=== PATIENT | male | born 1960 | race Caucasian/White ===

== ENCOUNTER → 2017-12-03 | Outpatient (CLI) | payer OTHER ==
[~2017-12-03] MED LIST: ASCO500T20 PO; CHOL100061 PO; CIPR500T4 PO; CPR500T PO; CRAN450C PO; IBP800T PO; LISI10TA PO; METR500T PO; NAPR-243 PO; OMG1KC PO; OXYC-471 PO; TRAM-21 PO
--- NOTE | 2017-12-03 10:48 | Diagnostic Imaging Report ---
Ultrasound of the left breast limited. Indication: Retroareolar mass. The diagnostic mammogram performed earlier today failed to show any sign of malignancy or of an acute abnormality. The previous left breast ultrasound exam on 09/22/2012 did note a 2.1 cm hypoechoic lesion in the retroareolar region. This was felt to represent a small abscess. On this study there is no evidence for the suspected abscess. There is no discrete solid or cystic mass within the left breast. The patient did relate that the pain and swelling in the breast is intermittent. Impression: 1. There is no evidence of malignancy or for a recurrent abscess. Clinical followup is recommended. 2. These results were discussed with Dr. Dee. ACR BI-RADS Category 1: Negative. Result letter will be mailed to the patient. Note: At least 10% of breast cancer is not imaged by mammography. Dictated by: Dictated on workstation # [id number]
--- NOTE | 2017-12-04 22:31 | Diagnostic Imaging Report ---
EXAMINATION: Unilateral diagnostic left mammogram with 3D tomosynthesis. INDICATION: Left breast pain and fullness. There are no prior studies available for comparison. Craniocaudal and MLO views of the left breast and a comparison MLO view of the right breast were obtained. The current study was also evaluated with computer detection system (CAD). FINDINGS: There is only a very small amount of fibroglandular tissue in each retroareolar region. There is no sign of gynecomastia and there is no primary or secondary sign of malignancy noted. There is no abnormality to account for the patient's left breast pain either. IMPRESSION: There is no evidence for malignancy, gynecomastia, or a cause for the patient's left breast pain. Ultrasound is pending for further study. ACR BI-RADS Category 0: Incomplete. (Needs additional imaging evaluation). Result letter will be mailed to the patient. Note: At least 10% of breast cancer is not imaged by mammography. Dictated by: Dictated on workstation # [id number]
== END ==
LOC: RAD 08:06
PROVIDERS: ATTEND Surgery
DX: Z13.21 Encounter for screening for nutritional disorder (principal); N63.42 Unspecified lump in left breast, subareolar
CPT/HCPCS: 76642

== ENCOUNTER → 2017-12-03 | Outpatient (CLI) | payer OTHER ==
--- NOTE | 2017-12-03 16:25 | Diagnostic Imaging Report ---
PROCEDURE: US Abdomen, limited. TECHNIQUE: Multiple real-time grayscale images were obtained over the abdomen in various projections. INDICATION: Right lower quadrant pain. FINDINGS: Reportedly, there is clinical concern regarding a hernia into the inguinal canal. On this exam, there does seem to be a small amount of mesenteric fat extending into the canal. This finding was also present on the previous CT abdomen/pelvis exam of 12/19/2014. There is no evidence for incarceration or obstruction of the bowel in this area. IMPRESSION: There is a small fat-containing inguinal hernia, but there is no incarceration or obstruction of the bowel in this area. Dictated by: Dictated on workstation # [id number]
== END ==
LOC: RAD 09:25
PROVIDERS: ATTEND Nurse Practitioner Community Health
DX: K40.90 Unilateral inguinal hernia, without obstruction or gangrene, not specified as recurrent (principal)
CPT/HCPCS: 76705

== ENCOUNTER 2017-12-15 05:44 | Outpatient (CLI) | payer OTHER ==
[~2017-12-15] VITALS: Ht 175.3 cm; Wt 77.1 kg
[2017-12-15] MEDS ORDERED: C,E,1CAP PO (12:31)
[2017-12-15] MEDS ORDERED: LISI10TA2 PO (12:31)
[2017-12-15] MEDS ORDERED: OMG1KC PO (12:31)
[2017-12-15] MEDS ORDERED: ASCO500T7 PO (12:31)
[2017-12-15] MEDS ORDERED: CRAN450C PO (12:31)
== END 2017-12-15 12:32 | disposition home or self-care (01) ==
LOC: PREOP 05:44
PROVIDERS: ATTEND Surgery
DX: Z01.818 Encounter for other preprocedural examination (principal)

== ENCOUNTER 2017-12-17 08:21 | Day surgery (SDC) | payer OTHER ==
[~2017-12-17] VITALS: Ht 175.3 cm; Wt 77.1 kg
[~2017-12-17 08:21] MED LIST changes: +ASCO500T7 PO; +C,E,1CAP PO; +LISI10TA2 PO
[2017-12-17] MEDS ORDERED: BUPIVACAINE 0.5% 30 ML (SENSORCAINE) VIAL ONE (08:25)
[2017-12-17] MEDS ORDERED: LIDOCAINE 1% INJ 20 ML 20 ML VIAL ONE (08:26)
--- OUTSIDE RECORDS SUMMARY | 2017-12-17 08:26 | XMS REPORT ---
Author Author PAVEL POND Organization [facility] Address [address] [place] [address] Care Team Providers Care Steward [employer]etr[employer] Name Role Phone PAVEL POND Unavailable PROBLEMS Unknown Problems ALLERGIES Substance Reaction Event Type Date Status Bactrim Unknown Drug Allergy Nov, Active sulfa drugs Unknown Non Drug Allergy Nov, Active penicillin Unknown Non Drug Allergy Nov, Active ENCOUNTERS Encounter Location Date Diagnosis [facility] [id number] [place] [address]20- 0846 Dec, [facility] [id number] [place] [address] 30867- 6368 Nov, Unilateral recurrent inguinal hernia without obstruction or gangrene K40.91 ; Dysuria R30.0 ; Lower abdominal pain R10.30 and Epididymitis N45.1 [facility] [id number] [place] [address] 46821- 9582 Nov, [facility] [id number] [place] [address] 57978- 8472 Nov, Abdominal pain, right lower quadrant R10.31 and Left breast abscess N61.1 [facility] [place] [facility] [id number] [place] [address] [id number] Jun, Encounter for dental examination Z01.20 [facility] [place] [facility] [id number] [place] [address] [id number] Apr, Dental examination Z01.20 [facility] [id number] [place] [address] 18818- 3992 Feb, [facility] [id number] [place] [address] 70858- 9777 Dec, Bilateral flank pain R10.9 [facility] [address] [facility] [id number] [address] Oct, Fatigue 780.79 and Acute sinusitis, unspecified 461.9 [facility] [address] [address] Oct, Fatigue 780.79 [facility] [id number] [place] [address] 14 Jun, 2014 [facility] [id number] [address] Jun, [facility] [id number] [place] [address], [place] [address] May, [facility] [id number] [address] 9583 May, [facility] [address] [address] 1008 May, [facility] [address], [place] [address] 8113 Dec, [facility] [address], [place] [address] 2461 Dec, [facility] [address], [place] [address] Sep, [facility] [address], [place] [address] Sep, [facility] [address] [id number] [address] Sep, [facility] [address]65100[place] [address] Sep, [facility] [address] [id number] [address] 359[address] Sep, [facility] [address] [id number], [place] [address] 59[address] Aug, [facility] [place] [facility] [address] [id number] [place] [address] 4923 Aug, [facility] [place] [facility] [address] [id number] [place] [address]- 3134 Aug, [facility] [place] [facility] [address] [id number] [place] [address]- 2546 Aug, [facility] [place] [facility] [address] [id number] [place] [address]- 8694 July, [facility] [place] [facility] [address] [id number] [place] [address]- 5836 July, [facility] [place] [facility] [address] [id number] [place] [address]- 9943 July, [facility] [place] [facility] [address] [id number] [place] [address]- 1328 May, [facility] [place] [facility] [address] [id number] [place] [address]- 2351 May, [facility] [place] [facility] [address] [id number] [place] [address]- 0349 Feb, [facility] [place] [facility] [address] [id number] [place] [address]- 8285 Feb, [facility] [place] [facility] [address] [id number] [place] [address] Feb, [facility] [place] [facility] [address] [id number] [place] [address]- 5479 Feb, [facility] [place] [facility] [address] [id number] [place] [address]- 8824 Feb, [facility] [place] [facility] [address] [id number] [place] [address]- 3776 Feb, [facility] [place] [facility] [address] [id number] [place] [address]- 5772 Feb, [facility] [place] [facility] [address] [id number] [place] [address]- 0225 Feb, [facility] [place] [facility] [address] [id number] [place] [address]- 3122 Feb, [facility] [place] [facility] [address] [id number] [place] [address]- 9165 Feb, [facility] [place] [facility] [address] [id number] [place] [address]- 0714 Feb, [facility] [place] [facility] [address] [id number] [place] [address]- 5369 Feb, [facility] [place] [facility] [address] [id number] [place] [address]- 6190 Feb, [facility] [place] [facility] [address] [id number] [place] [address]- 8587 Jan, [facility] [place] [facility] [address] [id number] [place] [address]- 8616 Jan, [facility] [place] [facility] [address] [id number] [place] [address]- 7495 Dec, [facility] [place] [facility] [address] [id number] [place] [address]- 1909 Dec, [facility] [place] [facility] [address] [id number] [place] [address]- 8023 Oct, [facility] [place] [facility] [address] [id number] [address]- 7240 Oct, [facility] [place] [facility] [address] [id number] [address]- 4399 Oct, [facility] [place] [facility] [address] [id number] [place] [address]- 1357 Sep, [facility] [place] [facility] [address] [id number], [place] [address]- 1670 Sep, [facility] [place] [facility] [address] [id number] [place] [address]- 5806 Jun, [facility] [place] [facility] [address] [id number], [place] [address]- 7687 Mar, [facility] [address] [id number] [place] [address]- 6181 Jan, [facility] [address] [id number], [place] [address]- 8159 Jan, [facility] [address] [id number], [place] [address]- 4456 Jan, [facility] [address] [id number][place] [address]- 9156 Jan, [facility] [address] [id number] [place] [address]- 4613 Jan, [facility] [address] [id number] [place] [address]- 8797 Jan, [facility] [address] [id number], [place] [address]- 8802 Dec, [facility] [address] [id number] [address]- 5957 Dec, [facility] [address] [id number], [place] [address]- 4547 Nov, [facility] [address] [id number] [id number] Jun, [facility] [address] [id number], [place] [address]- 8387 Apr, [facility] [address] [id number], [place] [address]- 1516 Apr, [facility] [address] [id number], [place] [address]- 3815 Apr, [facility] [place] [facility] [address] [id number], [place] [address]- 6386 Apr, [facility] [address] [id number], [place] [address]- 3992 Mar, [facility] [address] [facility] [id number] [place] [address]- 8273 Mar, [facility] [address] [facility] [id number][place] [id number] Mar, [facility] [address] [facility] [id number] [place] [address]- 8750 Feb, [facility] [address] [facility] [id number]- 7348 Jan, IMMUNIZATIONS No Known Immunizations SOCIAL HISTORY Never Assessed REASON FOR VISIT pain, PT had some test done yesterday and felt better but today is suffering through pain -Darin LEMUS PLAN OF CARE VITAL SIGNS Height 69 in 2017-12-04 Weight 172.9 lbs 2017-12-04 Temperature 97.9 degrees Fahrenheit 2017-12-04 Heart Rate 63 bpm 2017-12-04 Respiratory Rate 20 2017-12-04 Oximetry 94 % 2017-12-04 BMI 25.53 kg/m2 2017-12-04 Blood pressure systolic 128 mmHg 2017-12-04 Blood pressure diastolic 72 mmHg 2017-12-04 MEDICATIONS Medication Instructions Dosage Frequency Start Date End Date Duration Status Doxycycline Hyclate 100 mg Orally every 12 hrs 1 capsule 12h Nov, Dec, 10 day(s) Active Cranberry 425 MG Active Fish Oil 1000 MG Orally Once a day 1 capsule 24h Active Pantoprazole Sodium 20 mg Orally Once a day 1 tablet 24h Nov, 30 day(s) Active Lisinopril 10 MG 1 tablet 24h Sep, Active Ocuvite Active Vitamin C 100 MG Orally Once a day 1 tablet 24h 30 day(s) Active Ibuprofen 800 MG 1 tablet 8h Sep, Active Clindamycin HCl 300 MG Orally 4 times a day 1 capsule 6h Nov, Nov, 14 days Active Keflex 250 MG Orally every 6 hrs 1 capsule 6h 10 day(s) Active RESULTS Name Result Date Reference Range UA LONG DIP (IN HOUSE) 2017-12-04 Lot # [id number] Exp date 06/2018 Clarity clear Color yellow Odor n/a GLU negative GIOVANNA negative KET negative SG 1.025 BLO negative pH 5.5 Protein negative URO 0.2 NIT negative BÁRBARA negative Lot # Exp date PROCEDURES Procedure Date Ordered Result Body Site URINALYSIS, AUTO, W/O SCOPE Dec 04, 2017 INSTRUCTIONS MEDICATIONS ADMINISTERED No Known Medications MEDICAL (GENERAL) HISTORY Type Description Date Medical History High BP Surgical History No know Surgical history
--- OUTSIDE RECORDS SUMMARY | 2017-12-17 08:26 | XMS REPORT ---
Author Author PAVEL POND Organization [facility] Address [address] [place] [address] Care Team Providers Care End Polisher Name Role Phone PAVEL POND Unavailable PROBLEMS Unknown Problems ALLERGIES Substance Reaction Event Type Date Status Bactrim Unknown Drug Allergy Nov, Active sulfa drugs Unknown Non Drug Allergy Nov, Active penicillin Unknown Non Drug Allergy Nov, Active ENCOUNTERS Encounter Location Date Diagnosis [facility] [id number] [place] [address] 05585- 1844 28 Nov, 2017 Unilateral recurrent inguinal hernia without obstruction or gangrene K40.91 ; Dysuria R30.0 ; Lower abdominal pain R10.30 and Epididymitis N45.1 [facility] [id number] [place] [address] 08858- 4677 17 Nov, 2017 [facility] [address] [place] [id number] [place] [address] 47536- 2817 14 Nov, 2017 Abdominal pain, right lower quadrant R10.31 and Left breast abscess N61.1 [facility] [id number] [place] [address] [id number] Jun, Encounter for dental examination Z01.20 [facility] [id number] [place] [address] [id number] Apr, Dental examination Z01.20 [facility] [id number] [place] [address] 00431- 8500 Feb, [facility] [address] [address]- 2585 Dec, Bilateral flank pain R10.9 [facility] [id number] [place] [address] 46263- 7190 Oct, Fatigue 780.79 and Acute sinusitis, unspecified 461.9 [facility] [address] [place] [address]- 8370 Oct, Fatigue 780.79 [facility] [id number] [address]- 4261 14 Jun, 2014 [facility] [id number] [place] [address]- 7771 Jun, [facility] [address] [facility] [id number] [place] [address]- 4290 May, [facility] [id number] [place] [address], [place] [address]- 4508 May, [facility] [address] [id number] [address]- 9014 May, [facility] [address] [address]- 0083 Dec, [facility] [address] [address]- 0957 Dec, [facility] [address] [address]- 3827 Sep, [facility] [address] [address]- 6326 Sep, [facility] [address] [address]- 0023 Sep, [facility] [address] [id number] [address]- 6656 Sep, [facility] [address] [address]- 8426 Sep, [facility] [address] [address]- 5533 Aug, [facility] [address] [address]- 1007 Aug, [facility] [place] [facility] [address] [id number] [place] [address] 2546 Aug, [facility] [place] [facility] [address] [id number] [place] [address]- 4176 Aug, [facility] [place] [facility] [address] [id number] [place] [address]- 2546 July, [facility] [place] [facility] [address] [id number] [place] [address]- 3125 July, [facility] [place] [facility] [address] [id number] [place] [address]- 4566 July, [facility] [place] [facility] [address] [id number] [place] [address]- 7699 May, [facility] [place] [facility] [address] [id number] [place] [address]- 7019 May, [facility] [place] [facility] [address] [id number] [place] [address]- 2854 Feb, [facility] [place] [facility] [address] [id number] [place] 8342 24 Feb, 2013 [facility] [place] [facility] [address] [id number] [place] [address]- 9140 Feb, [facility] [place] [facility] [address] [id number] [place] 4[address] Feb, [facility] [place] [facility] [address] [id number] [place] [address]- 9555 20 Feb, 2013 [facility] [place] [facility] [address] [id number] [place] [address]- 8960 18 Feb, 2013 [facility] [place] [facility] [address] [id number] [place] [address]- 8846 18 Feb, 2013 [facility] [place] [facility] [address] [id number] [place] [address]- 1386 17 Feb, 2013 [facility] [place] [facility] [address] [id number] [place] [address]- 4733 Feb, [facility] [place] [facility] [address] [id number] [place] [address]- 3784 Feb, [facility] [place] [facility] [address] [id number] [place] [address]- 5379 Feb, [facility] [place] [facility] [address] [id number] [place] [address]- 5032 Feb, [facility] [place] [facility] [address] [id number] [place] [address]- 5517 Feb, [facility] [place] [facility] [address] [id number] [place] [address]- 1344 Jan, [facility] [place] [facility] [address] [id number] [place] [address]- 0438 Jan, [facility] [place] [facility] [address] [id number] [place] [address]- 8159 Dec, [facility] [place] [facility] [address] [id number] [place] [address]- 6801 Dec, [facility] [place] [facility] [address] [id number] [place] [address]- 2398 Oct, [facility] [place] [facility] [address] [id number] [place] [address]- 7909 Oct, [facility] [place] [facility] [address] [id number] [address]- 4251 Oct, [facility] [place] [facility] [address] [id number] [place] [address]- 4462 Sep, [facility] [place] [facility] [address] [id number] [place] [address]- 8065 Sep, [facility] [place] [facility] [address] [id number] [place] [address]- 5895 Jun, [facility] [place] [facility] [address] [id number] [place] [address]- 8621 Mar, [facility] [place] [facility] [address] [id number] [place] [address]- 5464 Jan, [facility] [place] [facility] [address] [id number] [place] [address]- 7932 Jan, [facility] [place] [facility] [address] [id number] [place] [address]- 1461 Jan, [facility] [place] [facility] [address] [id number] [place] [address]- 1750 Jan, [facility] [place] [facility] [address] [id number] [place] [address]- 8532 Jan, [facility] [place] [facility] [address] [id number] [place] [address]- 5333 Jan, [facility] [place] [facility] [address] [facility] [id number] [place] [address]- 1216 Dec, [facility] [place] [facility] [address] [place] [address]- 6686 Dec, [facility] [place] [facility] [address] [id number] [place] [address]- 2716 Nov, [facility] [id number] [id number] Jun, [facility] [place] [facility] [address] [address]- 5366 Apr, [facility] [place] [facility] [address] [facility] [id number] [place] [address]- 7356 Apr, [facility] [place] [facility] [address] [facility] [id number] [place] [address]- 2546 Apr, [facility] [place] [facility] [address] [id number] [place] [address]- 8106 Apr, [facility] [place] [facility] [address] [facility] [id number] [place] [address]- 8206 Mar, [facility] [place] [facility] [address] [id number] [address]- 5576 Mar, [facility] [address] [facility] [id number] [place] [id number] Mar, [facility] [address] [facility] [id number] [place] [address]77 Feb, [facility] [address] [facility] [id number] [place] [address]- 5791 Jan, IMMUNIZATIONS No Known Immunizations SOCIAL HISTORY Never Assessed REASON FOR VISIT cyst eval, PT reports his cycst has been acting up on his left breast -abbie MA , PT reports a sharp pain in his lower right side that shoots to his groin and his back. PT describes it as an ice pick feeling, pt notes its been going on for a month now. PLAN OF CARE VITAL SIGNS Height 69 in 2017-11-20 Weight 176.7 lbs 2017-11-20 Temperature 97.9 degrees Fahrenheit 2017-11-20 Heart Rate 65 bpm 2017-11-20 Respiratory Rate 20 2017-11-20 Oximetry 97 % 2017-11-20 BMI 26.09 kg/m2 2017-11-20 Blood pressure systolic 130 mmHg 2017-11-20 Blood pressure diastolic 70 mmHg 2017-11-20 MEDICATIONS Medication Instructions Dosage Frequency Start Date End Date Duration Status Ibuprofen 800 MG 1 tablet 8h Sep, Active Lisinopril 10 MG 1 tablet 24h Sep, Active Clindamycin HCl 300 MG Orally 4 times a day 1 capsule 6h Nov, Nov, 14 days Active Vitamin C 100 MG Orally Once a day 1 tablet 24h 30 day(s) Active Pantoprazole Sodium 20 mg Orally Once a day 1 tablet 24h Nov, 30 day(s) Active Ocuvite Active Cranberry 425 MG Active Keflex 250 MG Orally every 6 hrs 1 capsule 6h 10 day(s) Active Fish Oil 1000 MG Orally Once a day 1 capsule 24h Active RESULTS No Results PROCEDURES No Known procedures INSTRUCTIONS MEDICATIONS ADMINISTERED No Known Medications MEDICAL (GENERAL) HISTORY Type Description Date Medical History High BP Surgical History No know Surgical history
--- OUTSIDE RECORDS SUMMARY | 2017-12-17 08:26 | XMS REPORT ---
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 Problem Cellulitis and abscess of unspecified site 682.9 Active Problem Special screening for malignant neoplasm of prostate V76.44 Active Problem Dysuria 788.1 Active Problem Lump or mass in breast 611.72 Active Problem Candidiasis of mouth 112.0 Active Problem ZOSTAVAX DX V05.8 Active Problem Diverticulitis of colon (without mention of hemorrhage) 562.11 Active Problem Allergic rhinitis, cause unspecified 477.9 Active Problem Other, multiple, and unspecified sites, insect bite, nonvenomous, infected 919.5 Active Problem Acute sinusitis, unspecified 461.9 Active Medications No Known Medications Results No Known Results Summary Purpose eClinicalWorks Submission
--- OUTSIDE RECORDS SUMMARY | 2017-12-17 08:26 | XMS REPORT ---
Author Author NAREN Diane Organization [facility] Address Unknown Care Team Providers Care Vegetable Thinner Name Role Phone timurNAREN Pro Unavailable PROBLEMS Type Condition ICD9-CM Code DSA89-QC Code Onset Dates Condition Status SNOMED Code Problem Cellulitis and abscess of unspecified site 682.9 Active 372911780 Problem Inflammatory disease of breast 611.0 Active 644826614 Problem Lump or mass in breast 611.72 Active 77991809 Problem Special screening for malignant neoplasm of prostate V76.44 Active 088226748 Problem ZOSTAVAX DX V05.8 Active 33522739 Problem Other, multiple, and unspecified sites, insect bite, nonvenomous, infected 919.5 Active 051012872 Problem Dysuria 788.1 Active 21563759 Problem Encounter for dental examination Z01.20 Active 780021308 Problem Candidiasis of mouth 112.0 Active 05190100 Problem Acute sinusitis, unspecified 461.9 Active 11579677 Problem Diverticulitis of colon (without mention of hemorrhage) 562.11 Active 260107494 Problem 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 500680223 Problem Allergic rhinitis, cause unspecified 477.9 Active 91666799 ALLERGIES Substance Reaction Event Type Date Status Bactrim Unknown Drug Allergy Apr, Active sulfa drugs Unknown Non Drug Allergy Apr, Active penicillin Unknown Non Drug Allergy Apr, Active SOCIAL HISTORY Never Assessed PLAN OF CARE Activity Details Follow Up prn Reason:SRP/ANITA VITAL SIGNS Height 69 in 2016-04-29 Blood pressure systolic 139 mmHg 2016-04-29 Blood pressure diastolic 92 mmHg 2016-04-29 MEDICATIONS Medication Instructions Dosage Frequency Start Date End Date Duration Status Ibuprofen 800 MG 1 tablet 8h Sep, Active Cranberry 425 MG Active Lisinopril 10 MG 1 tablet 24h Sep, Active Fish Oil 1000 MG Orally Once a day 1 capsule 24h Active RESULTS No Results PROCEDURES Procedure Date Ordered Result Body Site LTD ORAL EVALUATION - PROBLEM FOCUS Apr 29, 2016 INTRAORL-PERIAPICAL 1 FILM 48901 Apr 29, 2016 IMMUNIZATIONS No Known Immunizations MEDICAL (GENERAL) HISTORY Type Description Date Medical History High BP
--- OUTSIDE RECORDS SUMMARY | 2017-12-17 08:26 | XMS REPORT ---
Author Author PAVEL POND Organization [facility] Address [address] [place] [address] Care Team Providers Care Coupon Clerk Name Role Phone PAVEL POND Unavailable PROBLEMS Unknown Problems ALLERGIES No Information ENCOUNTERS Encounter Location Date Diagnosis [facility] [id number] [place] [address] Dec, [facility] [address] [place] [address] 28 Nov, 2017 Unilateral recurrent inguinal hernia without obstruction or gangrene K40.91 ; Dysuria R30.0 ; Lower abdominal pain R10.30 and Epididymitis N45.1 [facility] [id number] [place] [address]- [address] 17 Nov, 2017 [facility] [id number] [place] [address]- [address] 14 Nov, 2017 Abdominal pain, right lower quadrant R10.31 and Left breast abscess N61.1 [facility] [id number] [place] [id number] Jun, Encounter for dental examination Z01.20 [facility] [id number] [place] [address] [id number] Apr, Dental examination Z01.20 [facility] [id number] [place] [address] Feb, [facility] [address] [address] Dec, Bilateral flank pain R10.9 [facility] [id number] [place] [address] Oct, Fatigue 780.79 and Acute sinusitis, unspecified 461.9 [facility] [place] [facility] [address] [id number] [place] [address] Oct, Fatigue 780.79 [facility] [place] [facility] [address] [id number] [place] [address] 14 Jun, 2014 [facility] [place] [facility] [address] [facility] [id number] [place] [address] Jun, [facility] [place] [facility] [address] [id number] [place] [address] May, [facility] [place] [facility] [address] [id number] [place] [address] May, [facility] [place] [facility] [address] [facility] [id number] [place] [address] May, [facility] [place] [facility] [address] [facility] [id number] [place] [address]607 Dec, [facility] [place] [facility] [address] [id number] [place] [address] 4527 Dec, [facility] [place] [facility] [address] [facility] [id number] [place] [address] Sep, [facility] [place] [facility] [address] [facility] [id number] [place] [address] Sep, [facility] [place] [facility] [address] [facility] [id number] [place] [address] 8036 Sep, [facility] [place] [facility] [address] [id number] [place] [address] 2067 Sep, [facility] [place] [facility] [address] [id number] [place] [address] 5731 Sep, [facility] [place] [facility] [address] [facility] [id number] [place] [address] Aug, [facility] [place] [facility] [address] [facility] [id number] [place] [address] Aug, [facility] [place] [facility] [address] [id number] [place] [address] 3785 Aug, [facility] [address] [id number] [place] [address] 8520 Aug, [facility] [address] [id number] [place] [address] 8351 July, [facility] [address] [id number] [place] [address] 8788 July, [facility] [address] [id number] [place] [address] 3860 July, [facility] [address] [id number] [place] [address] 2826 May, [facility] [address] [id number] [place] [address] 3716 May, [facility] [address] [id number] [place] [address] 9467 Feb, [facility] [address] [id number] [place] [address] 24 Feb, 2013 [facility] [address] [id number] [place] [address] 6651 Feb, [facility] [address] [id number] [place] [address] 6933 Feb, [facility] [address] [id number] [place] [address]- [address] 20 Feb, 2013 [facility] [address] [id number] [place] [address] 97[address] 18 Feb, 2013 [facility] [place] [facility] [address] [id number] [place] [address]- 2581 18 Feb, 2013 [facility] [address] [id number] [place] [address] 17 Feb, 2013 [facility] [address] [id number] [place] [address]- 2093 Feb, [facility] [address] [id number] [place] [address]- 1060 Feb, [facility] [place] [facility] [address] [id number] [place] [address] 2747 Feb, [facility] [place] [facility] [address] [id number] [place] [address]- 8878 Feb, [facility] [place] [facility] [address] [id number] [place] [address] 1924 Feb, [facility] [place] [facility] [address] [id number] [place] [address]- 5185 Jan, [facility] [place] [facility] [address] [id number] [place] [address]- 1846 Jan, [facility] [place] [facility] [address] [id number] [place] [address]- 4[address] Dec, [facility] [place] [facility] [address] [id number] [place] [address]- 2973 Dec, [facility] [place] [facility] [address] [id number] [place] [address]- 9926 Oct, [facility] [place] [facility] [address] [id number] [place] [address]- 2983 Oct, [facility] [place] [facility] [address] [id number] [place] [address]- [address]306 Oct, [facility] [place] [facility] [address] [id number] [address] Sep, [facility] [place] [facility] [address] [id number] [place] [address]- 5341 Sep, [facility] [place] [facility] [address] [id number] [place] [address]- 3974 Jun, [facility] [place] [facility] [address] [id number] [address] Mar, [facility] [place] [facility] [address] [id number] [address]- [address] Jan, [facility] [place] [facility] [address] [facility] [id number] [place] [address]- 5686 Jan, [facility] [place] [facility] [address] [facility] [id number] [address]- [address] Jan, [facility] [place] [facility] [address] [id number] [place] [place] [address]- [address] Jan, [facility] [place] [facility] [address] [facility] [id number] [address]- [address] Jan, [facility] [place] [facility] [address] [facility] [id number] [place] [address]- 68[address] Jan, [facility] [place] [facility] [address] [id number] [place] [place] [address]- 8536 Dec, [facility] [place] [facility] [id number] [address] Dec, [facility] [place] [facility] [address] [id number] [address]- [address] Nov, [facility] [id number] [id number] Jun, [facility] [place] [facility] [id number] [address] Apr, [facility] [place] [facility] [address] [id number] [address]- 8[address] Apr, [facility] [place] [facility] [address] [id number] [address]46 Apr, [facility] [place] [facility] [address] [id number] [address] 2546 Apr, [facility] [place] [facility] [address] [id number] [address]- [address] Mar, [facility] [place] [facility] [address] [id number] [address]- [address] Mar, [facility] [id number] [place] [id number] Mar, [facility] [address] [facility] [id number] [place] [address] Feb, [facility] [address] [facility] [id number] [place] [address] Jan, IMMUNIZATIONS No Known Immunizations SOCIAL HISTORY Never Assessed REASON FOR VISIT Requests return call PLAN OF CARE VITAL SIGNS MEDICATIONS Unknown Medications RESULTS No Results PROCEDURES No Known procedures INSTRUCTIONS MEDICATIONS ADMINISTERED No Known Medications MEDICAL (GENERAL) HISTORY Type Description Date Medical History High BP Surgical History No know Surgical history
--- OUTSIDE RECORDS SUMMARY | 2017-12-17 08:26 | XMS REPORT ---
Author SARA Lang [facility] eClinical[employer] Address Unknown Phone Unavailable Care Team Providers Care Spinner Hydraulic Name Role Phone SARA MUNOZ CP Unavailable Allergies, Adverse Reactions, Alerts Substance Reaction Event Type Bactrim Info Not Available Drug Allergy Problems Problem Type Condition Code Onset Dates Condition Status Problem Inflammatory disease of breast 611.0 Active Problem 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 Problem Cellulitis and abscess of unspecified site 682.9 Active Problem Lump or mass in breast 611.72 Active Problem Candidiasis of mouth 112.0 Active Problem ZOSTAVAX DX V05.8 Active Problem Diverticulitis of colon (without mention of hemorrhage) 562.11 Active Problem Allergic rhinitis, cause unspecified 477.9 Active Problem Other, multiple, and unspecified sites, insect bite, nonvenomous, infected 919.5 Active Problem Acute sinusitis, unspecified 461.9 Active Assessment Bilateral flank pain R10.9 Active Problem Special screening for malignant neoplasm of prostate V76.44 Active Problem Dysuria 788.1 Active Medications Medication Code System Code Instructions Start Date End Date Status Dosage Ibuprofen [facility] [address]-84 800 MG Three times a day September 16, 2013 1 tablet Cranberry [facility] [address] 425 MG Orally not defined Lisinopril [facility] [address]-45 10 MG Once a day September 16, 2013 1 tablet Fish Oil [facility] [address]-69 1000 MG Orally Once a day 1 capsule Procedures Procedure Coding System Code Date Office Visit, Est Pt., Level 3 CPT-4 59919 Dec 09, 2014 URINALYSIS, AUTO, W/O SCOPE CPT-4 86104 Dec 09, 2014 Vital Signs Date/Time: Dec 09, 2014 Temperature 97.5 F Weight 179.6 lbs Height 69 in Pain Scale 7 1-10 Blood Pressure Diastolic 82 mmHg Blood Pressure Systolic 126 mmHg Cardiac Monitoring Heart Rate 80 bpm BMI 26.52 Index Results Name Result Date Reference Range Unit Abnormality Flag UA W/CULTURE IF INDICATED (IN HOUSE) Summary Purpose eClinicalWorks Submission
--- OUTSIDE RECORDS SUMMARY | 2017-12-17 08:27 | XMS REPORT | Continuity of Care Document ---
Author Author [facility] Address Unknown Phone Unavailable Allergies Active Description Code Type Severity Reaction Onset Reported/Identified Relationship to Patient Clinical Status Yes codeine Drug Allergy N/A N/A 07/30/2009 Yes Penicillins Drug Allergy N/A N/A 07/30/2009 Yes codeine Drug Allergy 07/30/2009 Yes Penicillins Drug Allergy 07/30/2009 Yes codeine [id number] Drug Allergy Unknown RASH 10/26/2012 Yes Penicillins [id number] Drug Allergy Unknown HIVES 10/26/2012 Medications There is no data. Problems Date Dx Coded Attending Type Code Diagnosis Diagnosed By 07/30/2009 LAWRENCE BAER APRN 604.90 ORCHITIS AND EPIDIDYMITIS, UNSPECIFIED 07/30/2009 604.90 ORCHITIS AND EPIDIDYMITIS, UNSPECIFIED 07/30/2009 MARVA LUCERO DO 604.90 ORCHITIS AND EPIDIDYMITIS, UNSPECIFIED 07/30/2009 PAVEL POND APRN 604.90 ORCHITIS AND EPIDIDYMITIS, UNSPECIFIED 07/30/2009 GONZALO DORMAN MD 604.90 ORCHITIS AND EPIDIDYMITIS, UNSPECIFIED 07/30/2009 PAVEL POND APRN 604.90 ORCHITIS AND EPIDIDYMITIS, UNSPECIFIED 07/30/2009 PAVEL POND APRN 604.90 ORCHITIS AND EPIDIDYMITIS, UNSPECIFIED 07/30/2009 JOSE R ACEVEDO APRN 604.90 ORCHITIS AND EPIDIDYMITIS, UNSPECIFIED 07/30/2009 AYAH RUGGIERO APRN 604.90 ORCHITIS AND EPIDIDYMITIS, UNSPECIFIED 07/30/2009 LAWRENCE BAER APRN 604.90 ORCHITIS AND EPIDIDYMITIS, UNSPECIFIED 07/30/2009 MARVA LUCERO DO 604.90 ORCHITIS AND EPIDIDYMITIS, UNSPECIFIED 07/30/2009 PAVEL POND APRN 604.90 ORCHITIS AND EPIDIDYMITIS, UNSPECIFIED 07/30/2009 PAVEL POND APRN 604.90 ORCHITIS AND EPIDIDYMITIS, UNSPECIFIED 07/31/2010 KEYUR MÉNDEZ LAWRENCE S 401.1 HYPERTENSION, BENIGN ESSENTIAL 07/31/2010 KEYUR MÉNDEZ LAWRENCE S 522.5 PERIAPICAL ABSCESS WITHOUT SINUS 07/31/2010 401.1 HYPERTENSION, BENIGN ESSENTIAL 07/31/2010 522.5 PERIAPICAL ABSCESS WITHOUT SINUS 07/31/2010 LUCERO DO, MARVA K 401.1 HYPERTENSION, BENIGN ESSENTIAL 07/31/2010 LUCERO DO, MARVA K 522.5 PERIAPICAL ABSCESS WITHOUT SINUS 07/31/2010 PAVEL POND APRN 401.1 HYPERTENSION, BENIGN ESSENTIAL 07/31/2010 PAVEL POND APRN 522.5 PERIAPICAL ABSCESS WITHOUT SINUS 07/31/2010 GONZALO DORMAN MD 401.1 HYPERTENSION, BENIGN ESSENTIAL 07/31/2010 GONZALO DORMAN MD 522.5 PERIAPICAL ABSCESS WITHOUT SINUS 07/31/2010 PAVEL POND APRN 401.1 HYPERTENSION, BENIGN ESSENTIAL 07/31/2010 PAVEL POND APRN 522.5 PERIAPICAL ABSCESS WITHOUT SINUS 07/31/2010 PAVEL POND APRN 401.1 HYPERTENSION, BENIGN ESSENTIAL 07/31/2010 PAVEL POND APRN 522.5 PERIAPICAL ABSCESS WITHOUT SINUS 07/31/2010 CURTIS MÉNDEZ JOSE R R 401.1 HYPERTENSION, BENIGN ESSENTIAL 07/31/2010 CURTIS MÉNDEZ JOSE R R 522.5 PERIAPICAL ABSCESS WITHOUT SINUS 07/31/2010 BAHMAN MÉNDEZ AYAH R 401.1 HYPERTENSION, BENIGN ESSENTIAL 07/31/2010 BAHMAN MÉNDEZ AYAH R 522.5 PERIAPICAL ABSCESS WITHOUT SINUS 07/31/2010 MARIPOSA BAER APRNA S 401.1 HYPERTENSION, BENIGN ESSENTIAL 07/31/2010 STEVIE BAER APRNNDA S 522.5 PERIAPICAL ABSCESS WITHOUT SINUS 07/31/2010 LUCERO DO MARVA K 401.1 HYPERTENSION, BENIGN ESSENTIAL 07/31/2010 LUCERO DO MARVA K 522.5 PERIAPICAL ABSCESS WITHOUT SINUS 07/31/2010 PAVEL POND APRN 401.1 HYPERTENSION, BENIGN ESSENTIAL 07/31/2010 PAVEL POND APRN 522.5 PERIAPICAL ABSCESS WITHOUT SINUS 07/31/2010 PAVEL POND APRN 401.1 HYPERTENSION, BENIGN ESSENTIAL 07/31/2010 PAVEL POND APRN 522.5 PERIAPICAL ABSCESS WITHOUT SINUS 04/03/2011 LAWRENCE BAER APRN S 788.1 pain during urination (dysuria) 04/03/2011 LAWRENCE BAER APRN S V76.44 visit for: screening exam malignant neoplasm prostate 04/03/2011 788.1 pain during urination (dysuria) 04/03/2011 V76.44 visit for: screening exam malignant neoplasm prostate 04/03/2011 CHECO LUCERO DOA K 788.1 pain during urination (dysuria) 04/03/2011 CHECO LUCERO DOA K V76.44 visit for: screening exam malignant neoplasm prostate 04/03/2011 PAVEL POND APRN 788.1 pain during urination (dysuria) 04/03/2011 PAVEL POND APRN V76.44 visit for: screening exam malignant neoplasm prostate 04/03/2011 GONZALO DORMAN MD 788.1 PAIN DURING URINATION (DYSURIA) 04/03/2011 GONZALO DORMAN MD V76.44 VISIT FOR: SCREENING EXAM MALIGNANT NEOPLASM PROSTATE 04/03/2011 PAVEL POND APRN 788.1 PAIN DURING URINATION (DYSURIA) 04/03/2011 PAVEL POND APRN V76.44 VISIT FOR: SCREENING EXAM MALIGNANT NEOPLASM PROSTATE 04/03/2011 PAVEL POND APRN 788.1 PAIN DURING URINATION (DYSURIA) 04/03/2011 PAVEL POND APRN V76.44 VISIT FOR: SCREENING EXAM MALIGNANT NEOPLASM PROSTATE 04/03/2011 JOSE R ACEVEDO APRN R 788.1 PAIN DURING URINATION (DYSURIA) 04/03/2011 JOSE R ACEVEDO APRN R V76.44 VISIT FOR: SCREENING EXAM MALIGNANT NEOPLASM PROSTATE 04/03/2011 AYAH RUGGIERO APRN R 788.1 PAIN DURING URINATION (DYSURIA) 04/03/2011 AYAH RUGGIERO APRN R V76.44 VISIT FOR: SCREENING EXAM MALIGNANT NEOPLASM PROSTATE 04/03/2011 LAWRENCE BAER APRN S 788.1 pain during urination (dysuria) 04/03/2011 LAWRENCE BAER APRN S V76.44 visit for: screening exam malignant neoplasm prostate 04/03/2011 MARVA LUCERO DO 788.1 PAIN DURING URINATION (DYSURIA) 04/03/2011 MARVA LUCERO DO V76.44 VISIT FOR: SCREENING EXAM MALIGNANT NEOPLASM PROSTATE 04/03/2011 PAVEL POND APRN 788.1 PAIN DURING URINATION (DYSURIA) 04/03/2011 PAVEL POND APRN V76.44 VISIT FOR: SCREENING EXAM MALIGNANT NEOPLASM PROSTATE 04/03/2011 PAVEL POND APRN 788.1 PAIN DURING URINATION (DYSURIA) 04/03/2011 PAVEL POND APRN V76.44 VISIT FOR: SCREENING EXAM MALIGNANT NEOPLASM PROSTATE 11/14/2011 LAWRENCE BAER APRN 461.9 SINUSITIS ACUTE 11/14/2011 461.9 SINUSITIS ACUTE 11/14/2011 MARVA LUCERO DO 461.9 SINUSITIS ACUTE 11/14/2011 PAVEL POND APRN 461.9 SINUSITIS ACUTE 11/14/2011 GONZALO DORMAN MD 461.9 SINUSITIS ACUTE 11/14/2011 PAVEL POND APRN 461.9 SINUSITIS ACUTE 11/14/2011 PAVEL POND APRN 461.9 SINUSITIS ACUTE 11/14/2011 JOSE R ACEVEDO APRN R 461.9 SINUSITIS ACUTE 11/14/2011 AYAH RUGGIERO APRN R 461.9 SINUSITIS ACUTE 11/14/2011 LAWRENCE BAER APRN S 461.9 SINUSITIS ACUTE 11/14/2011 MARVA LUCERO DO 461.9 SINUSITIS ACUTE 11/14/2011 PAVEL POND APRN 461.9 SINUSITIS ACUTE 11/14/2011 PAVEL POND APRN 461.9 SINUSITIS ACUTE 12/22/2011 Ot 562.10 DIVERTICULOSIS COLON (W/O MENT OF HEMORR 12/22/2011 Ot 789.03 ABDOMINAL PAIN, RIGHT LOWER QUADRANT 01/31/2012 LAWRENCE BAER APRN S 562.11 DIVERTICULITIS OF COLON (WITHOUT HEMORRHAGE) 01/31/2012 562.11 DIVERTICULITIS OF COLON (WITHOUT HEMORRHAGE) 01/31/2012 MARVA LUECRO DO 562.11 DIVERTICULITIS OF COLON (WITHOUT HEMORRHAGE) 01/31/2012 PAVEL POND APRN 562.11 DIVERTICULITIS OF COLON (WITHOUT HEMORRHAGE) 01/31/2012 GONZALO DORMAN MD 562.11 DIVERTICULITIS OF COLON (WITHOUT HEMORRHAGE) 01/31/2012 PAVEL POND APRN 562.11 DIVERTICULITIS OF COLON (WITHOUT HEMORRHAGE) 01/31/2012 PAVEL POND APRN 562.11 DIVERTICULITIS OF COLON (WITHOUT HEMORRHAGE) 01/31/2012 JOSE R ACEVEDO APRN R 562.11 DIVERTICULITIS OF COLON (WITHOUT HEMORRHAGE) 01/31/2012 AYAH RUGGIERO APRN R 562.11 DIVERTICULITIS OF COLON (WITHOUT HEMORRHAGE) 01/31/2012 LAWRENCE BAER APRN S 562.11 DIVERTICULITIS OF COLON (WITHOUT HEMORRHAGE) 01/31/2012 MARVA LUCERO DO K 562.11 DIVERTICULITIS OF COLON (WITHOUT HEMORRHAGE) 01/31/2012 PAVEL POND APRN 562.11 DIVERTICULITIS OF COLON (WITHOUT HEMORRHAGE) 01/31/2012 PAVEL POND APRN 562.11 DIVERTICULITIS OF COLON (WITHOUT HEMORRHAGE) 09/10/2012 611.72 LUMP OR MASS IN BREAST 09/10/2012 MARVA LUCERO DO K 611.72 LUMP OR MASS IN BREAST 09/10/2012 PAVEL POND APRN T 611.72 LUMP OR MASS IN BREAST 09/10/2012 GONZALO DORMAN MD 611.72 LUMP OR MASS IN BREAST 09/10/2012 PAVEL POND APRN 611.72 LUMP OR MASS IN BREAST 09/10/2012 PAVEL POND APRN 611.72 LUMP OR MASS IN BREAST 09/10/2012 JOSE R ACEVEDO APRN R 611.72 LUMP OR MASS IN BREAST 09/10/2012 AYAH RUGGIERO APRN R 611.72 LUMP OR MASS IN BREAST 09/10/2012 MARVA LUCERO DO K 611.72 LUMP OR MASS IN BREAST 09/10/2012 PAVEL POND APRN 611.72 LUMP OR MASS IN BREAST 09/10/2012 PAVEL POND APRN 611.72 LUMP OR MASS IN BREAST 10/25/2012 MARVA LUCERO DO K 239.3 BREAST MASS 10/25/2012 PAVEL POND APRN 239.3 BREAST MASS 10/25/2012 GONZALO DORMAN MD 239.3 BREAST MASS 10/25/2012 PAVEL POND APRN 239.3 BREAST MASS 10/25/2012 PAVEL POND APRN 239.3 BREAST MASS 10/25/2012 JOSE R ACEVEDO APRN R 239.3 BREAST MASS 10/25/2012 AYAH RUGGIERO APRN R 239.3 BREAST MASS 10/25/2012 LUCERO DO, MARVA K 239.3 BREAST MASS 10/25/2012 PAVEL POND APRN 239.3 BREAST MASS 10/25/2012 PAVEL POND APRN T 239.3 BREAST MASS 11/01/2012 LUCERO DO, MARVA K 611.0 INFLAMMATORY DISEASE OF BREAST 11/01/2012 PAVEL POND APRN 611.0 INFLAMMATORY DISEASE OF BREAST 11/01/2012 GONZALO DORMAN MD 611.0 INFLAMMATORY DISEASE OF BREAST 11/01/2012 PAVEL POND APRN 611.0 INFLAMMATORY DISEASE OF BREAST 11/01/2012 PAVEL POND APRN 611.0 INFLAMMATORY DISEASE OF BREAST 11/01/2012 JOSE R ACEVEDO APRN R 611.0 INFLAMMATORY DISEASE OF BREAST 11/01/2012 AYAH RUGGIERO APRN R 611.0 INFLAMMATORY DISEASE OF BREAST 11/01/2012 LUCERO DO, MARVA K 611.0 INFLAMMATORY DISEASE OF BREAST 11/01/2012 PAVEL POND APRN 611.0 INFLAMMATORY DISEASE OF BREAST 11/01/2012 PAVEL POND APRN 611.0 INFLAMMATORY DISEASE OF BREAST 01/07/2013 PAVEL POND APRN V05.8 ZOSTAVAX DX 01/07/2013 GONZALO DORMAN MD V05.8 ZOSTAVAX DX 01/07/2013 PAVEL POND APRN V05.8 ZOSTAVAX DX 01/07/2013 PAVEL POND APRN V05.8 ZOSTAVAX DX 01/07/2013 JOSE R ACEVEDO APRN R V05.8 ZOSTAVAX DX 01/07/2013 AYAH RUGGIERO APRN V05.8 ZOSTAVAX DX 01/07/2013 JAZMINE BARRIGA, MARVA K V05.8 ZOSTAVAX DX 01/07/2013 PAVEL POND APRN V05.8 ZOSTAVAX DX 01/07/2013 PAVEL POND APRN V05.8 ZOSTAVAX DX 05/11/2013 RUGGIERO AUTOMATION ENGINEERING MANAGER, AYAH R 112.0 CANDIDIASIS OF MOUTH 05/11/2013 BAHMAN PENGN AYAH R 919.5 INSECT BITE NONVENOMOUS OF OTHER MULTIPLE AND UNSPECIFIED SITES INFECTED 05/11/2013 LUCERO DO, MARVA K 112.0 CANDIDIASIS OF MOUTH 05/11/2013 LUCERO DO, MARVA K 919.5 INSECT BITE NONVENOMOUS OF OTHER MULTIPLE AND UNSPECIFIED SITES INFECTED 05/11/2013 PAVEL POND APRN 112.0 CANDIDIASIS OF MOUTH 05/11/2013 PAVEL POND APRN 919.5 INSECT BITE NONVENOMOUS OF OTHER MULTIPLE AND UNSPECIFIED SITES INFECTED 05/11/2013 PAVEL POND APRN T 112.0 CANDIDIASIS OF MOUTH 05/11/2013 PAVEL POND APRN 919.5 INSECT BITE NONVENOMOUS OF OTHER MULTIPLE AND UNSPECIFIED SITES INFECTED 09/16/2013 PAVEL POND APRN T 477.9 RHINITIS 09/16/2013 PAVEL POND APRN T 562.11 DIVERTICULITIS OF COLON (WITHOUT HEMORRHAGE) 09/16/2013 PAVEL POND APRN 477.9 RHINITIS 09/16/2013 PAVEL POND APRN T 562.11 DIVERTICULITIS OF COLON (WITHOUT HEMORRHAGE) 09/24/2013 PAVEL POND APRN T 682.9 CELLULITIS AND ABSCESS OF UNSPECIFIED SITES 12/19/2014 APRIL HOLLINGSWORTH AUTOMATION ENGINEERING MANAGER Ot 611.72 12/19/2014 [employer], LESVAI Patel Ot 401.9 12/19/2014 [employer], LESVIA Patel Ot 611.0 12/19/2014 [employer], LESVIA M Ot V15.82 12/19/2014 [employer], LESVIA M Ot 611.0 12/19/2014 [employer], LESVIA M Ot V72.83 12/19/2014 [employer], LESVIA M Ot V74.8 12/19/2014 [employer], SARA Beltran Ot N20.0 CALCULUS OF KIDNEY 12/19/2014 SARA BARRETT MD Ot N39.0 URINARY TRACT INFECTION, SITE NOT SPECIF 12/19/2014 [employer], SARA Beltran Ot R10.32 LEFT LOWER QUADRANT PAIN 12/19/2014 APRIL HOLLINGSWORTH AUTOMATION ENGINEERING MANAGER Ot 611.72 12/19/2014 [employer], LESVIA M Ot 401.9 12/19/2014 [employer], LESVIA M Ot 611.0 12/19/2014 [employer], LESVIA M Ot V15.82 12/19/2014 [employer], LESVIA M Ot 611.0 12/19/2014 [employer], LESVIA M Ot V72.83 12/19/2014 [employer], LESVIA M Ot V74.8 03/27/2016 APRIL HOLLINGSWORTH AUTOMATION ENGINEERING MANAGER Ot 611.72 LUMP OR MASS IN BREAST 03/27/2016 [employer], LESVIA M Ot 401.9 HYPERTENSION NOS 03/27/2016 [employer], LESVIA M Ot 611.0 INFLAM DISEASE OF BREAST 03/27/2016 [employer], LESVIA M Ot V15.82 HISTORY OF TOBACCO USE 03/27/2016 [employer], LESVIA M Ot 611.0 INFLAM DISEASE OF BREAST 03/27/2016 [employer], LESVIA M Ot V72.83 EXAM PRE-OPERATIVE NEC 03/27/2016 [employer], LESVIA M Ot V74.8 SCREEN-BACTERIAL DIS NEC 11/26/2017 APRIL HOLLINGSWORTH AUTOMATION ENGINEERING MANAGER Ot 611.72 LUMP OR MASS IN BREAST 11/26/2017 [employer], LESVIA M Ot 401.9 HYPERTENSION NOS 11/26/2017 [employer], LESVIA M Ot 611.0 INFLAM DISEASE OF BREAST 11/26/2017 [employer], LESVIA M Ot V15.82 HISTORY OF TOBACCO USE 11/26/2017 [employer], LESVIA M Ot 611.0 INFLAM DISEASE OF BREAST 11/26/2017 [employer], LESVIA M Ot V72.83 EXAM PRE-OPERATIVE NEC 11/26/2017 [employer], LESVIA M Ot V74.8 SCREEN-BACTERIAL DIS NEC 12/02/2017 APRIL HOLLINGSWORTH AUTOMATION ENGINEERING MANAGER Ot 611.72 LUMP OR MASS IN BREAST 12/02/2017 [employer], LESVIA M Ot 401.9 HYPERTENSION NOS 12/02/2017 [employer], LESVIA M Ot 611.0 INFLAM DISEASE OF BREAST 12/02/2017 [employer], LESVIA M Ot V15.82 HISTORY OF TOBACCO USE 12/02/2017 LESVIA WOODSON MD M Ot 611.0 INFLAM DISEASE OF BREAST 12/02/2017 LESVIA WOODSON MD Ot V72.83 EXAM PRE-OPERATIVE NEC 12/02/2017 LESVIA WOODSON MD Ot V74.8 SCREEN-BACTERIAL DIS NEC 12/02/2017 APRIL HOLLINGSWORTH AUTOMATION ENGINEERING MANAGER Ot 611.72 LUMP OR MASS IN BREAST 12/02/2017 LESVIA WOODSON MD Ot 401.9 HYPERTENSION NOS 12/02/2017 [employer], LESVIA Patel Ot 611.0 INFLAM DISEASE OF BREAST 12/02/2017 LESVIA WOODSON MD Ot V15.82 HISTORY OF TOBACCO USE 12/02/2017 LESVIA WOODSON MD Ot 611.0 INFLAM DISEASE OF BREAST 12/02/2017 LESVIA WOODSON MD Ot V72.83 EXAM PRE-OPERATIVE NEC 12/02/2017 LESVIA WOODSON MD Ot V74.8 SCREEN-BACTERIAL DIS NEC 12/03/2017 APRIL HOLLINGSWORTH AUTOMATION ENGINEERING MANAGER Ot 611.72 LUMP OR MASS IN BREAST 12/03/2017 LESVIA WOODSON MD Ot 401.9 HYPERTENSION NOS 12/03/2017 LESVIA WOODSON MD Ot 611.0 INFLAM DISEASE OF BREAST 12/03/2017 LESVIA WOODSON MD Ot V15.82 HISTORY OF TOBACCO USE 12/03/2017 LESVIA WOODSON MD Ot 611.0 INFLAM DISEASE OF BREAST 12/03/2017 LESVIA WOODSON MD Ot V72.83 EXAM PRE-OPERATIVE NEC 12/03/2017 LESVIA WOODSON MD Ot V74.8 SCREEN-BACTERIAL DIS NEC 12/04/2017 PAVEL POND Ot K40.90 UNIL INGUINAL HERNIA, W/O OBST OR GANGR, 12/05/2017 CHRISTINA JOHNSON DO Ot N63.42 UNSPECIFIED LUMP IN LEFT BREAST, SUBAREO 12/05/2017 CHRISTINA JOHNSON DO Ot Z13.21 ENCOUNTER FOR SCREENING FOR NUTRITIONAL Procedures Code Description [place] [address] US BREAST ULTRASOUND, LEFT 09/10/2012 89447 CMP 01/07/2013 38358 LIPID PANEL 01/07/2013 80106 CBC 01/07/2013 22675 CULTURE WOUND (AEROBIC) 02/22/2013 37848 ROUTINE VENIPUNCTURE 02/23/2013 64053 CBC 02/23/2013 08373 CMP 02/23/2013 99844 LIPID PANEL 02/23/2013 [id number] GFR CALC (RESULT ONLY) 02/23/2013 Results There is no data. Encounters ACCT No. Visit Date/Time Discharge Status Pt. Type Provider Facility Loc./Unit Complaint [id number] 09/24/2013 13:09:00 09/24/2013 23:59:59 CLS Outpatient SALTY PENGJordy PAVEL Fitzgerald [id number] 09/16/2013 11:39:00 09/16/2013 23:59:59 CLS Outpatient PAVEL POND APRN [id number] 08/16/2013 14:40:00 08/16/2013 23:59:59 CLS Outpatient MARVA LUCERO DO [id number] 05/11/2013 14:32:00 05/11/2013 23:59:59 CLS Outpatient AYAH RUGGIERO APRN [id number] 03/01/2013 09:14:00 03/01/2013 23:59:59 CLS Outpatient JOSE R ACEVEDO APRN [id number] 02/23/2013 09:43:00 02/23/2013 23:59:59 CLS Outpatient PAVEL POND APRN [id number] 02/22/2013 16:39:00 02/22/2013 23:59:59 CLS Outpatient SALTY AUTOMATION ENGINEERING MANAGERPAVEL Spence [id number] 02/17/2013 13:16:00 02/17/2013 23:59:59 CLS Outpatient GONZALO DORMAN MD [id number] 01/07/2013 09:10:00 01/07/2013 23:59:59 CLS Outpatient PAVEL POND APRN [id number] 11/01/2012 16:26:00 11/01/2012 23:59:59 CLS Outpatient MARVA LUCERO DO [id number] 01/31/2012 11:56:00 01/31/2012 23:59:59 CLS Outpatient LAWRENCE BAER APRN [id number] 01/31/2012 11:56:00 01/31/2012 23:59:59 CLS Outpatient LAWRENCE BAER APRN [id number] 09/10/2012 14:38:00 Document Registration [id number] 12/15/2017 05:44:00 12/15/2017 12:32:00 DIS Outpatient CHRISTINA JOHNSON DO [facility] PREOP RIGHT INGUINAL HERNIA [id number] 12/03/2017 09:25:00 12/03/2017 23:59:59 CLS Outpatient PAVEL POND [facility] RAD RLQ ABD PAIN [id number] 12/03/2017 08:06:00 12/03/2017 23:59:59 CLS Outpatient CHRISTINA JOHNSON DO [facility] RAD N63.0 BREAST MASS IN MALE [id number] 12/19/2014 09:32:00 12/19/2014 13:39:00 DIS Emergency SARA BARRETT MD [facility] ER SIDE/BACK PAIN [id number] 10/27/2012 12:17:00 10/27/2012 23:59:59 CLS Outpatient LESVIA WOODSON MD [facility] SDC LEFT BREAST ABSCESS [id number] 10/26/2012 12:48:00 10/26/2012 23:59:59 CLS Outpatient LESVIA WOODSON MD [facility] PREOP LEFT BREAST ABSCESS [id number] 09/22/2012 09:50:00 09/22/2012 23:59:59 CLS Outpatient APRIL HOLLINGSWORTH APRN [facility] RAD LEFT BREAST MASS [id number] 12/22/2011 07:56:00 Document Registration
[2017-12-17 08:30] VITALS: BP 139/84
[2017-12-17] MEDS ORDERED: ceFAZolin 2 GM IV Premixed 50 ML ONE (08:43)
[2017-12-17] MEDS ORDERED: LACTATED RINGERS 1,000 ML IV PRN (09:14)
[2017-12-17] MEDS ORDERED: ceFAZolin 2 GM IV Premixed 50 ML IV ONE (09:15)
--- NOTE | 2017-12-17 09:17 | Progress Note-Pre Operative ---
Pre-Operative Progress Note H&P Reviewed The H&P was reviewed, patient examined and no changes noted. Date Seen by Provider: Dec 17, 2017 Time Seen by Provider: 09:17 Date H&P Reviewed: Dec 17, 2017 Time H&P Reviewed: 09:17 Pre-Operative Diagnosis: right inguinal hernia CHRISTINA JOHNSON DO Dec 17, 2017 09:17
[2017-12-17] MEDS ORDERED: MIDAZOLAM 2 MG/2 ML (VERSED) VIAL ONE (09:22)
[2017-12-17] MEDS ORDERED: fentaNYL INJECTION 100 MCG/2 ML AMP ONE (09:22)
[2017-12-17] MEDS ORDERED: LIDOCAINE PF 2% 5 ML (XYLOCAINE) VIAL ONE (09:58)
[2017-12-17] MEDS ORDERED: SEVOFLURANE (ULTANE) 15 ML INHAL SOLN ONE (09:58)
[2017-12-17] MEDS ORDERED: ONDANSETRON 4 MG/2 ML (SDV) Z0FRAN ONE (09:58)
[2017-12-17] MEDS ORDERED: proPOfol 200 MG/20 ML (DIPRIVAN) VIAL IV ONE (09:58)
[2017-12-17] MEDS ORDERED: DEXAMETHASONE 10 MG/ML (DECADRON) 1 ML VIAL ONE (09:58)
[2017-12-17] MEDS ORDERED: GLYCOPYRROLATE 0.2 MG/ML (ROBINUL) 2 ML VIAL ONE (09:58)
[2017-12-17] MEDS ORDERED: morphine INJ 10 MG/ML 1ML (SYR OR VIAL) IVP ONE (10:00)
--- NOTE | 2017-12-17 10:06 | Progress Note-Post Operative ---
Post-Operative Progess Note Surgeon (s)/Mixer Runner (s) Surgeon CHRISTINA JOHNSON DO Mixer Runner: Dr. Petit Pre-Operative Diagnosis right inguinal hernia Post-Operative Diagnosis direct right inguinal hernia Procedure & Operative Findings Date of Procedure 12/17/17 Procedure Performed/Findings open right inguinal hernia Anesthesia Type gen Estimated Blood Loss Estimated blood loss (mL): min Specimens/Packing Specimens Removed none CHRISTINA JOHNSON DO Dec 17, 2017 10:06
[2017-12-17] MEDS ORDERED: ACHD5005 PO (10:07)
[2017-12-17] MEDS ORDERED: DOCU-143 PO (10:07)
--- NOTE | 2017-12-17 10:08 | Discharge Inst-Simple/Standard ---
Discharge Inst-Standard Discharge Medications New, Converted or Re-Newed RX: RX on Chart Patient Instructions/Follow Up Plan of Care/Instructions/FU: 2-3 weeks Luiz Activity as Tolerated: No Discharge Diet: Regular Diet Other Inst to Patient Follow up Appt: Make appointment for 2-3 weeks. Instructions: No lifting greater than 10 pounds. No strenuous activity. May shower in 24 hours, no tub bath or soaking. Use incentive spirometer at home as directed. No Smoking Skin/Wound Care: You have special glue over incisions it will fall off on its own. Symptoms to Report: Appetite Changes, Extremity Discoloration, Numbness/Tingling, Swelling Increased , Bleeding Excessive, Eyesight Changes, Pain Increased, Urine Color Change, Constipation(Persistent), Fever over 101 degree F, Pain/Pressure in chest, Urinating Difficulty, Cough Up/Vomit Blood, Heart Beat Irreg/Pounding, Pain/ Pressure in jaw, Vaginal Bleeding Increase, Cramps in feet or legs, Lightheadedness, Pain/Pressure in shoulder, Diarrhea(Persistent), Memory Changes Suddenly, Questions/Concerns, Weight gain consecutive days, Dizziness/ Fainting, Nausea/Vomiting, Shortness of Breath, Weight gain over 2 pounds If questions or concerns contact your physician Or seek help at emergency department. CHRISTINA JOHNSON DO Dec 17, 2017 10:08
[2017-12-17] MEDS ORDERED: HYDROcodone/APAP 5 MG/325 MG (LORTAB) TAB PO PRN (10:15)
[2017-12-17 11:07] VITALS: BP 130/83
[2017-12-17] MEDS: ONDANSETRON 4 MG/2 ML (SDV) Z0FRAN IVP PRN (11:07)
[2017-12-17 11:35] VITALS: BP 125/82
--- NOTE | 2017-12-17 11:40 | Anesthesia-General Post-Op ---
General Patient Condition Mental Status/LOC: Same as Preop Cardiovascular: Satisfactory Nausea/Vomiting: Absent Respiratory: Satisfactory Pain: Controlled Complications: Absent Post Op Complications Complications None Follow Up Care/Instructions Patient Instructions None needed. Anesthesia/Patient Condition Patient Condition Patient is doing well, no complaints, stable vital signs, no apparent adverse anesthesia problems. No complications reported per nursing. SHAYLA ALVES CRNA Dec 17, 2017 11:40
[2017-12-17 12:07] VITALS: BP 132/76
[2017-12-17 12:50] VITALS: BP 132/76
--- NOTE | 2017-12-17 13:28 | OPERATIVE REPORT ---
DATE OF SERVICE: 12/17/2017 PREOPERATIVE DIAGNOSIS: Right inguinal hernia. POSTOPERATIVE DIAGNOSIS: Right direct inguinal hernia. PROCEDURE: Open right inguinal hernia repair. SURGEON: Christina Dee DO ARCHITECTURAL INSPECTOR: Dr. Petit, assisted in retraction, dissection and closure. ANESTHESIA: General. ESTIMATED BLOOD LOSS: Minimal. COMPLICATIONS: None. INDICATIONS: The patient is a 57-year-old male with right inguinal hernia by physical exam. He understands risks and benefits of procedure and wished to proceed with procedure. Consent was signed on the chart. DESCRIPTION OF PROCEDURE: The patient was taken to the operating suite. He was prepped and draped in sterile fashion. Surgical pause was performed. Local anesthetic was infiltrated into the right lower quadrant. Incision was made in the right lower quadrant, dissected down to the external oblique, which was then opened down through the external ring. The spermatic cord was then dissected around and a [place] drain was placed around it. The cord was skeletonized not seeing any indirect hernia defect. There was a direct defect present. The contents were able to be reduced. The defect was then closed using 0 Vicryl in eqeczz-on-pgyzb fashion until the defect was closed. The ProGrip mesh was then tacked to Yoni's ligament and then incorporated around the spermatic cord, lying it under the external oblique. The wound was then irrigated with copious amounts of irrigation. The external oblique was then closed recreating the external ring using Vicryl suture. The subcutaneous tissues were then reapproximated using 3-0 Vicryl. The skin was then closed using 4-0 Monocryl in a subcuticular fashion. The area was washed and dried and Skin Affix was placed over the incision. The patient tolerated the procedure well without any complications and taken to recovery room in stable condition. Job ID: [id number] DocumentID: [id number] Dictated Date: 12/17/2017 13:07:17 Typing Bookkeeper Date: 12/17/2017 13:27:45 Dictated By: CHRISTINA DEE DO
== END 2017-12-17 12:50 | disposition home or self-care (01) ==
LOC: SDC 08:21
PROVIDERS: ATTEND Surgery
DX: K40.90 Unilateral inguinal hernia, without obstruction or gangrene, not specified as recurrent (principal); I10 Essential (primary) hypertension; K21.9 Gastro-esophageal reflux disease without esophagitis; Z79.899 Other long term (current) drug therapy; Z87.891 Personal history of nicotine dependence
CPT/HCPCS: 87081; 94664

== ENCOUNTER → 2022-03-26 | Outpatient (CLI) | payer SELFPAY ==
[~2022-03-26] MED LIST changes: +ACHD5005 PO; -CIPR500T4 PO; +CIPR500T5 PO; +DOCU-143 PO; -LISI10TA2 PO; +LISI10TA25 PO; -OXYC-471 PO; +OXYC1TAB11 PO
--- NOTE | 2022-03-26 16:03 | Diagnostic Imaging Report ---
PROCEDURE: MRI lumbar spine. TECHNIQUE: Multiplanar, multisequence MRI of the lumbar spine was performed without contrast. INDICATION: Lumbar back pain with right radiculopathy. COMPARISON: None. FINDINGS: Normal alignment. Vertebral body heights preserved. Modic type I degenerative endplate changes at L5-S1. No abnormal signal in the conus which terminates at L2. Normal morphology of the cauda equina. The visualized pelvis and paravertebral soft tissues are unremarkable. L1-L2: Moderate facet arthropathy. Mild bilateral neural foraminal narrowing. No spinal canal or lateral recess narrowing. L2-L3: Small central disc protrusion and facet arthropathy result in mild bilateral lateral recess and spinal canal narrowing. Moderate bilateral neural foraminal narrowing. L3-L4: Central disc protrusion, ligamentous hypertrophy and facet arthropathy result in moderate spinal canal stenosis. Moderate bilateral lateral recess narrowing. Moderate bilateral neural foraminal narrowing. L4-L5: Annular disc bulging, ligamentous hypertrophy and facet arthropathy result in moderate bilateral lateral recess narrowing. Mild spinal canal narrowing. Moderate to severe bilateral neural foraminal narrowing. L5-S1: Central disc protrusion and facet arthropathy result in moderate bilateral lateral recess narrowing. Mild spinal canal narrowing. Severe bilateral neural foraminal narrowing. IMPRESSION: 1. 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 Spinal canal stenosis is greatest at L3-L4 rated as moderate. 2. No acute osseous finding. Modic type I degenerative endplate changes at L5-S1. Dictated by: Dictated on workstation # [id number]
== END ==
LOC: RAD 14:27
PROVIDERS: ATTEND Physician Assistant
DX: M48.061 Spinal stenosis, lumbar region without neurogenic claudication (principal); M48.07 Spinal stenosis, lumbosacral region; M51.37 Other intervertebral disc degeneration, lumbosacral region
CPT/HCPCS: 72148